=== PATIENT | male | born 1955 | race Caucasian/White ===

== ENCOUNTER → 2019-04-15 | Outpatient (CLI) | payer MEDICARE, OTHER ==
[~2019-04-15] MED LIST: CALCIUM600 M1 PO; CALTRATE 600 W1 EACH PO; FIBERCON625 MG PO; FLUVASTATIN SOD40 MG PO; PREVACID30 M2 PO; VITAMIN D32000 UNIT PO; Z BENEFIBER PO; Z.0.LIPITOR40 MG PO; [UNRECOGNIZED DRUG - OTHER] PO; [UNRECOGNIZED DRUG - OTHER] PO
--- NOTE | 2019-04-15 13:06 | Diagnostic Imaging Report ---
EXAM: Renal Ultrasound INDICATION: ^CYST OF RIGHT KIDNEY COMPARISON: None TECHNIQUE: Transverse and longitudinal images of the kidneys and bladder were obtained. FINDINGS: Right Kidney: Length: 12.8 cm Appearance: Normal echogenicity. Collecting system: No hydronephrosis Stones: None Cyst/Mass: Lower pole anechoic cyst measuring 4.3 x 5.7 x 4.7 cm with a single internal septation. Left Kidney: Length: 12.3 cm Appearance: Normal echogenicity. Collecting system: No hydronephrosis Stones: None Cyst/Mass: Mid pole exophytic 1.4 x 1.2 x 1.5 cm anechoic simple cyst. Bladder: No mass or calculi. Bilateral ureteral jets visualized. Prevoid volume estimate of 344 cc. The prostate measures 3.8 x 3.7 x 4.0 cm with a volume estimate of 29.3 cc. IMPRESSION: No hydronephrosis or renal calculi. Right lower pole Bosniak II cyst. Left midpole simple cyst. No imaging follow-up is necessary. Signed by: Xochitl Robledo MD on 04/15/2019 1:03 PM
--- NOTE | 2019-04-15 13:20 | Diagnostic Imaging Report ---
Thyroid ultrasound CPT code: 55963 History: Thyroid nodules Comparison: None Findings: The thyroid echotexture is normal. Vascularity is normal. The right lobe measures 4.6 x 2.1 x 1.9 cm. The left lobe measures 4.4 x 1.6 x 2.2 cm. The isthmus measures 0.3 cm. Nodules (measurements are AP, transverse, craniocaudal): Right Lobe: 2 x 2 x 2 mm anechoic cystic lesion without associated calcification or vascularity. Left Lobe: 1.3 x 1.2 x 1.3 cm inferior pole ill-defined isoechoic nodule without internal calcifications but with associated vascularity. Isthmus: No cystic mass or discrete solid nodule identified. Lymph Nodes: No cervical lymph nodes are identified. Parathyroids: Not visualized. IMPRESSION: Left thyroid inferior pole 1.3cm nodule (TI-RADS 4) can be followed with imaging at 1,2, 3, and 5 years. Right lobe cystic nodule is not suspicious and does not need imaging followup. ACR glossary of thyroid rads TI-RADS 1: No focal lesion. TI-RADS 2: Not suspicious. TI-RADS 3: Mildly suspicious (recommend FNA is greater than or equal to 2.5 cm; follow-up at 1, 3, and 5 years if greater than or equal to 1.5 cm) TI-RADS 4: Moderately Suspicious (recommend FNA is greater than or equal to 1.5 cm; follow-up at 1, 2, 3, and 5 years) TI-RADS 5: Highly suspicious (recommend FNA is greater than or equal to 10 mm) TI-RADS 6: Biopsy-proven malignancy Signed by: Xochitl Robledo MD on 04/15/2019 1:16 PM
== END ==
LOC: US 11:40
PROVIDERS: ATTEND Family Medicine
DX: R94.6 Abnormal results of thyroid function studies (principal); N28.1 Cyst of kidney, acquired
CPT/HCPCS: 76536; 76770; 93880

== ENCOUNTER → 2020-06-22 | Outpatient (CLI) | payer MEDICARE, OTHER | LOC: US 07:41 | PROVIDERS: ATTEND Family Medicine | DX: E04.1 Nontoxic single thyroid nodule (principal) | CPT/HCPCS: 76536; 76770 ==

== ENCOUNTER → 2021-03-23 | Day surgery (SDC) | payer MEDICARE, OTHER ==
[2021-03-21 10:09] LABS: BASOPHILS % 0.5 % (0.0-1.0); EOSINOPHILS # (AUTO) 0.1 (0.0-0.4); EOSINOPHILS % 1.9 % (0.0-6.0); HEMATOCRIT 42.1 % (38.2-49.6); HEMOGLOBIN 14.1 g/dL (14.0-18.0); LYMPHOCYTES # (AUTO) 1.1 (1.0-3.2); MEAN CORPUSCULAR HEMOGLOBIN 32.8 pg (28-32); MEAN CORPUSCULAR HGB CONC 33.5 g/dL (31-35); MEAN CORPUSCULAR VOLUME 97.9 fL (81-99); MONOCYTES # (AUTO) 0.7 (0.2-0.8); MONOCYTES % 11.4 % (4.4-11.3); NEUTROPHILS # (AUTO) 4.3 (2.1-6.9); NEUTROPHILS % 68.3 % (38.7-80.0); PLATELET COUNT 145 x10e3/uL (140-360); RED CELL DISTRIBUTION WIDTH 12.4 % (11.7-14.4)
[~2021-03-23] MED LIST changes: +CIPRO500 MG PO; +CLARITIN10 MG PO; +CULTURELLE1 EACH PO; +DICYCLOMINE HCL10 MG PO; +DIPHENOXYLATE-1 EACH PO; +LOVASTATIN40 MG PO; +MELATONIN3 MG PO; +METAMUCIL FIBE3.4 GM PO; +PROTONIX20 MG PO
[2021-03-23 13:05] VITALS: BP 132/80
[2021-03-23 14:29] LABS: WBC,FECAL (FECAL LACTOFERRIN) NEGATIVE (NEGATIVE)
[2021-03-24 14:49] LABS: C DIFFICILE TOXIN A&B AMP PROB NEGATIVE (NEGATIVE)
== END | disposition home or self-care (01) ==
LOC: OR 07:55
PROVIDERS: ATTEND Internal Medicine Gastroenterology
DX: K52.9 Noninfective gastroenteritis and colitis, unspecified (principal); Z86.010 Personal history of colon polyps; K31.7 Polyp of stomach and duodenum; K29.70 Gastritis, unspecified, without bleeding; K29.80 Duodenitis without bleeding; K22.70 Barrett's esophagus without dysplasia; K21.9 Gastro-esophageal reflux disease without esophagitis; K44.9 Diaphragmatic hernia without obstruction or gangrene; K62.89 Other specified diseases of anus and rectum; K64.8 Other hemorrhoids; G47.33 Obstructive sleep apnea (adult) (pediatric); E78.00 Pure hypercholesterolemia, unspecified; Z88.8 Allergy status to other drugs, medicaments and biological substances; Z01.810 Encounter for preprocedural cardiovascular examination; Z01.812 Encounter for preprocedural laboratory examination; Z20.822 Contact with and (suspected) exposure to COVID-19; Z79.82 Long term (current) use of aspirin; Z68.28 Body mass index [BMI] 28.0-28.9, adult
CPT/HCPCS: 36415; 43239; 45380; 83630; 83993; 85025; 87045; 87177; 87328; 87493; 88305; 88312; 93005; U0002; 45378

== ENCOUNTER → 2022-07-19 | Outpatient (CLI) | payer MEDICARE, OTHER | LOC: US 09:53 | PROVIDERS: ATTEND Family Medicine | DX: E04.1 Nontoxic single thyroid nodule (principal) | CPT/HCPCS: 76536 ==

== ENCOUNTER → 2022-08-29 | Outpatient (CLI) | payer MEDICARE, OTHER | LOC: US 09:30 | PROVIDERS: ATTEND Family Medicine | DX: E04.1 Nontoxic single thyroid nodule (principal) | CPT/HCPCS: 10005; 88172; 88173; 88300 ==

== ENCOUNTER → 2023-10-10 | Outpatient (REF) | payer MEDICARE, OTHER | LOC: US 08:50 | PROVIDERS: ATTEND Family Medicine | DX: N28.1 Cyst of kidney, acquired (principal) | CPT/HCPCS: 76536; 76770 ==